=== PATIENT | female | born 1995 | race Caucasian/White ===

== ENCOUNTER → 2020-04-04 12:12 | Outpatient (CLI) | payer OTHER, MEDICAID, SELFPAY ==
--- NOTE | 2020-04-04 12:14 | DI.US.S_ITS ---
PROCEDURE: US OB >= 14 WEEKS FETUS INDICATIONS: Initial US for Dating and Viability please OUTSIDE/PRIOR DATING DATA: Last menstrual period (LMP): 12/18/2019. LMP-based estimated date of delivery (PRIMITIVO): 09/23/2020 . First dating scan (date and location): 04/04/2020 . Estimated date of delivery (PRIMITIVO) from first dating scan: 09/20/2020 . TECHNIQUE: Real-time scanning was performed of the fetus, with image documentation and biometric measurements. Endovaginal scanning: No COMPARISON: None. FINDINGS: General: A single living intrauterine gestation is present. Presentation: Transverse. Placenta: Placental position is posterior , without previa. Amniotic fluid index: 10.0 cm, normal range is 5-24 cm. heart rate: 147 beats per minute. Maternal cervical canal: 4.9 cm long. Normal lower limit is 2.5 cm. biometrics: Biparietal diameter: 15 weeks 6 days Head circumference: 15 weeks 6 days Abdominal circumference: 15 weeks 6 days Femur length: 15 weeks 5 days Estimated gestational age from initial scan: not applicable. Composite gestational age from present scan: 15 weeks 6 days Estimated weight and percentile: N/a Measurement variability for biometric dating: +/- 7 days from 14 weeks to 15 weeks 6 days gestation, +/- 10 days from 16 weeks to 21 weeks 6 days gestation, +/- 2 weeks from 22 weeks to 27 weeks 6 days gestation, +/- 3 weeks for 28 weeks gestation or later. weight reference: 4500 g or EFW >90/95% is considered macrosomia or large for gestational age. EFW <10% is small for gestational age. EFW 5% or less is considered intra-uterine growth restriction. IMPRESSION: 1. 15 week 6 day single living IUP corresponding to ultrasound PRIMITIVO of 09/20/2020. Follow-up anatomic survey recommended. Dictated by: Jared Andres Mindi Interpreted: Agusto Franco MD on 04/07/2020 at 13:35 Approved by: Agusto Franco M.D. on 04/07/2020 at 17:29
[2020-04-04 13:14] LABS: Add Manual Diff / Slide Review NO; Appearance Urine UA CLEAR; Basophils Absolute Auto 0 /uL (0-100); Basophils Percent Auto 0.5 % (0-2); Bilirubin Urine UA NEGATIVE (NEGATIVE); Color Urine UA YELLOW; Eosinophils Absolute Auto 100 /uL (0-450); Eosinophils Percent Auto 0.8 % (2-4); Glucose Urine UA NEGATIVE (Negative); Hematocrit 38.6 % (36-46); Ketones Urine UA NEGATIVE (NEGATIVE); Leukocyte Esterase Urine UA NEGATIVE (NEGATIVE); Lymphocytes Absolute Auto 2200 /uL (1100-4500); Lymphocytes Percent Auto 23.6 % (25-40); Mean Corpuscular HGB Conc 33.7 % (30-36); Mean Corpuscular Hemoglobin 29.1 PG (26-34); Mean Corpuscular Volume 86.1 fL (80-100); Monocytes Absolute Auto 500 /uL (0-900); Monocytes Percent Auto 5.6 % (3-14); Neutrophils Absolute Auto 6400 /uL (1500-7000); Neutrophils Percent Auto 69.5 % (50-75); Nitrite Urine UA NEGATIVE (Negative); Occult Blood Urine UA NEGATIVE (Negative); Platelet Count 251 X10^3/uL (150-400); Protein Urine UA NEGATIVE (Negative); Red Blood Cell Count 4.48 X10^6/uL (4.0-5.2); Red Cell Distribution Width 15.4 % (11.6-14.8); Specific Gravity Urine UA <=1.005 (1.000-1.035); Urobilinogen Urine UA 0.2 E.U./dL (0.2); White Blood Cell Count 9.3 X10^3/uL (4.5-11.0)
[2020-04-04 13:57] LABS: Free T4, Direct Thyroxine 0.64 ng/dL (0.78-2.19)
[2020-04-04 14:12] LABS: Thyroid Stimulating Hormone 5.48 uIU/mL (0.47-4.68)
[2020-04-05 04:11] LABS: RPR Screen Non Reactive (Non Reactive)
[2020-04-05 09:00] LABS: Varicella IgG Antibody 3247 index (Immune >165)
[2020-04-07 16:32] LABS: Hepatitis B Surface Antigen NEGATIVE s/c (NEGATIVE); Rubella Antibody IgG 21.1 IU/mL (>15)
[2020-04-07 16:52] LABS: HIV 1 & 2 Ab/Ag 4th Gen Combo NEGATIVE (NEGATIVE); Hep C Virus Ab w/Reflex Quant NEGATIVE s/c (NEGATIVE)
== END ==
PROVIDERS: PCP Obstetrics & Gynecology; Referring Provider Obstetrics & Gynecology; Visit Provider Obstetrics & Gynecology
DX: O99.282 Endocrine, nutritional and metabolic diseases complicating pregnancy, second trimester (principal); E03.9 Hypothyroidism, unspecified; Z3A.15 15 weeks gestation of pregnancy
CPT/HCPCS: 36415; 76801; 76811; 80055; 81003; 84439; 84443; 86787; 86803; 86850; 86900; 86901; 87086; 87389

== ENCOUNTER → 2020-04-28 12:39 | Outpatient (CLI) | payer OTHER, MEDICAID, SELFPAY ==
--- NOTE | 2020-04-28 12:40 | DI.US.S_ITS ---
PROCEDURE: US OB >= 14 WEEKS FETUS INDICATIONS: Anatomy Scan OUTSIDE/PRIOR DATING DATA: Last menstrual period (LMP): 12/18/19. LMP-based estimated date of delivery (PRIMITIVO): 09/23/20 . First dating scan (date and location): 04/04/20 . Estimated date of delivery (PRIMITIVO) from first dating scan: 09/20/20 . TECHNIQUE: Real-time scanning was performed of the fetus, with image documentation and biometric measurements. Endovaginal scanning: Not needed COMPARISON: [facility], OB >= 14 WEEKS FETUS, 04/04/2020, 12:27. FINDINGS: General: A single living intrauterine gestation is present. Presentation: Transverse fetus head to maternal right. Placenta: Placental position is posterior , without previa. Amniotic fluid index: 16.3 cm, normal range is 5-24 cm. heart rate: 147 beats per minute. Maternal cervical canal: 4.0 cm long. Normal lower limit is 2.5 cm. biometrics: Biparietal diameter: 4.4 cm, 19 weeks 2 days Head circumference: 16.2 cm, 19 weeks 0 days Abdominal circumference: 1941 cm, 19 weeks 3 days Femur length: 3.1 cm, 19 weeks 4 days Estimated gestational age from initial scan: 19 weeks 2 days Composite gestational age from present scan: 19 weeks 2 days Estimated weight and percentile: 293 g, 55th percentile Measurement variability for biometric dating: +/- 7 days from 14 weeks to 15 weeks 6 days gestation, +/- 10 days from 16 weeks to 21 weeks 6 days gestation, +/- 2 weeks from 22 weeks to 27 weeks 6 days gestation, +/- 3 weeks for 28 weeks gestation or later. weight reference: 4500 g or EFW >90/95% is considered macrosomia or large for gestational age. EFW <10% is small for gestational age. EFW 5% or less is considered intra-uterine growth restriction. Anatomic survey: Neuro: Ventricles are non-dilated at less than 10 mm. Cisterna magna is normal at 3-11 mm. Cerebellum is normal in size and morphology. Nuchal skin fold: Normal at less than 6 mm between 14-21 weeks gestational age. Face: Nose and lips, facial profile are normal. Spine: No evidence for spina bifida. Heart: 4-chambered heart is present, with normal ventricular outflow tracts. Diaphragm: Diaphragm is intact. Stomach: Left-sided stomach is present. Kidneys: No hydronephrosis. Normal is less than 5 mm in 2nd trimester, less than 7 mm in 3rd trimester. Cord: 3-vessel cord has orthotopic insertion. Bladder: Normal in size. Extremities: All 4 extremities identified. IMPRESSION: Appropriate interval growth, no anomaly seen. The delivery date is projected to be centered on 09/20/20. position currently is transverse. Dictated by: Kem Herbert M.D. on 04/28/2020 at 16:29 Approved by: Kem Herbert M.D. on 04/28/2020 at 16:32
== END ==
PROVIDERS: Referring Provider Obstetrics & Gynecology; Visit Provider Obstetrics & Gynecology
DX: Z34.82 Encounter for supervision of other normal pregnancy, second trimester (principal); Z3A.19 19 weeks gestation of pregnancy
CPT/HCPCS: 76811

== ENCOUNTER → 2020-09-02 16:47 | Outpatient (CLI) | payer OTHER, MEDICAID, SELFPAY ==
[2020-09-03 11:47] LABS: Strep Grp B PCR NEG for Grp B Strep
== END ==
PROVIDERS: Visit Provider Obstetrics & Gynecology
DX: Z34.83 Encounter for supervision of other normal pregnancy, third trimester (principal); Z3A.37 37 weeks gestation of pregnancy
CPT/HCPCS: 87653

== ENCOUNTER 2020-09-12 12:58 | Outpatient (CLI) | payer OTHER, MEDICAID, SELFPAY | END 2020-09-12 14:45 | disposition home or self-care (01) | LOC: LABOR 13:50 → OB 09-15 06:51 | PROVIDERS: Referring Provider Obstetrics & Gynecology; Visit Provider Obstetrics & Gynecology | DX: Z03.71 Encounter for suspected problem with amniotic cavity and membrane ruled out (principal); O47.1 False labor at or after 37 completed weeks of gestation; O99.323 Drug use complicating pregnancy, third trimester; Z3A.38 38 weeks gestation of pregnancy | CPT/HCPCS: 59025; 84112; G0378; G0379 ==

== ENCOUNTER 2020-09-16 21:04 | Inpatient (IN) | payer OTHER, MEDICAID, SELFPAY ==
[2020-09-16 22:30] LABS: Add Manual Diff / Slide Review NO; Basophils Absolute Auto 200 /uL (0-100); Basophils Percent Auto 1.2 % (0-2); Eosinophils Absolute Auto 100 /uL (0-450); Eosinophils Percent Auto 0.6 % (2-4); Hemoglobin 12.1 g/dL (12.0-16.0); Lymphocytes Absolute Auto 3000 /uL (1100-4500); Lymphocytes Percent Auto 17.8 % (25-40); Mean Corpuscular HGB Conc 33.5 % (30-36); Mean Corpuscular Hemoglobin 27.6 PG (26-34); Mean Corpuscular Volume 82.3 fL (80-100); Monocytes Absolute Auto 1200 /uL (0-900); Monocytes Percent Auto 7.3 % (3-14); Neutrophils Absolute Auto 12500 /uL (1500-7000); Neutrophils Percent Auto 73.1 % (50-75); Platelet Count 279 X10^3/uL (150-400); Red Blood Cell Count 4.37 X10^6/uL (4.0-5.2); Red Cell Distribution Width 14.6 % (11.6-14.8); White Blood Cell Count 17.1 X10^3/uL (4.5-11.0)
[2020-09-16 23:19] VITALS: BP 121/57
[2020-09-16 23:36] LABS: COVID19 - ADMIT (NP swab/PCR) Negative (Negative)
[2020-09-17] MEDS: DINOPROSTONE VAG (CERVIDIL) 10 MG VAG (01:53)
[2020-09-17] MEDS: LACTATED RINGERS 1,000 ML 100 ML IV ×2 (08:24→15:34)
[2020-09-17] MEDS: OXYTOCIN PREMIX 30 UNIT/500 ML PLAST..BAG IV (09:00)
--- NOTE | 2020-09-17 09:08 | PM.AN.REGBLK ---
Regional Block Pre-procedure Procedure: Continuous Lumbar Epidural for L&D Attending OB provider: Jadyn Melendez PMH/ROS narrative: term induction. No complications. Hx: No personal or family history of anesthesia problems. ASA Class: II Labs: Hct 36.0 % (36-46) 09/16/20 22:15 Plt Count 279 X10^3/uL (150-400) 09/16/20 22:15 Medications: Current Medications Generic Name Dose Route Start Last Admin Trade Name Freq PRN Reason Stop Dose Admin Calcium Carbonate 1,000 mg 09/16/20 21:19 Calcium Carbonate 500 Mg Tab PO Q2HR PRN Dyspepsia Carboprost Tromethamine 250 mcg 09/16/20 21:19 Carboprost 250 Mcg/Ml Ampul IM Q90M PRN Bleeding Diphenhydramine HCl 25 mg 09/17/20 08:29 Diphenhydramine 50 Mg/Ml Vial IV Q10M PRN Pruritis Fentanyl 50 mcg 09/16/20 21:19 Fentanyl 100 Mcg/2 Ml Inj IV Q1H PRN Pain, Moderate (4-6) Oxytocin/Lactated Ringer's 30 unit in 500 mls @ 200 mls/hr 09/16/20 21:19 Oxytocin Premix IV CONT PRN Bleeding Protocol Oxytocin/Lactated Ringer's 30 unit in 500 mls @ 3 mls/hr 09/16/20 21:30 09/17/20 09:00 Oxytocin Premix IV 3 milliunit/min TITRATE VIKRAM 3 mls/hr Administration Protocol 3 MILLIUNIT/MIN Tranexamic Acid 1,000 mg/ 100 mls @ 150 mls/hr 09/16/20 21:19 Sodium Chloride IV NOW PRN Bleeding Lactated Ringer's 1,000 mls @ 100 mls/hr 09/16/20 21:30 09/17/20 08:24 Lactated Ringers IV 100 mls/hr CONT VIKRAM Administration Lactated Ringer's 1,000 mls @ 1,000 mls/hr 09/17/20 08:29 Lactated Ringers IV 09/17/20 09:28 BOLUS ONE FENT 2MCG/ML BUPIV 0.125% EPI 200 mcg in 100 mls @ 6 mls/hr 09/17/20 08:30 Fentanyl/Bupiv/Ns 2mcg/Ml - 0.125% EPIDURAL CONT VIKRAM Methylergonovine Maleate 0.2 mg 09/16/20 21:19 Methylergonovine 0.2 Mg/Ml Vial IM NOW PRN Bleeding Methylergonovine Maleate 0.2 mg 09/16/20 21:19 Methylergonovine 0.2 Mg Tablet PO Q6HR PRN Heavy Bleeding Metoclopramide HCl 10 mg 09/16/20 21:19 Metoclopramide 10 Mg/2 Ml Inj IV NOW PRN Nausea And Vomiting Misoprostol 400 mcg 09/16/20 21:19 Misoprostol 200 Mcg Tablet SL NOW PRN Bleeding Misoprostol 800 mcg 09/16/20 21:19 Misoprostol 200 Mcg Tablet MT NOW PRN Bleeding Misoprostol 1,000 mcg 09/16/20 21: Misoprostol 200 Mcg Tablet MT NOW PRN Bleeding Naloxone HCl 0.2 mg 09/16/20 21:19 Naloxone 0.4 Mg/Ml Vial IV Q2MIN PRN Opiate Reversal Ondansetron HCl 4 mg 09/16/20 21:19 Ondansetron 4 Mg/2 Ml Inj IV Q4HR PRN Nausea And Vomiting Oxytocin 10 unit 09/16/20 21:19 Oxytocin 10 Unit/Ml Vial IM NOW PRN Bleeding Allergies: Allergies Allergy/AdvReac Type Severity Reaction Status Date / Time No Known Drug Allergies Allergy Unknown Unverified 09/09/20 15:28 Procedure Insertion date: 09/17/20 Insertion time: 09:50 Prep/Local: betadine x3 Interspace: L3-4 Patient position: sitting Needle: 18 gauge [employer] (CSE: 27g Pencan through Hustead, clear CSF, 1mL 0.25% bupiv) Loss of resistance with: saline BRENDEN at (cm): 6 Catheter placed at SKIN (cm): 12 Catheter in SPACE (cm): 6 Insertion: No CSF, No Blood, No Paresthesia with insertion, No Paresthesia with injection and No Test dose reaction Initial Medications TEST DOSE time: 09:51 TEST DOSE: 1.5% lidocaine with epinephrine 1:200k (mL): 3 BOLUS DOSE time: 10:03 BOLUS DOSE (mL): 3 BOLUS DOSE med: other (infusate) Infusion INFUSION: 0.125% bupivacaine and with fentanyl 2 mcg/mL Initial rate (mL/hr): 6 Subsequent interventions: AROM after CSE by OB. 1600: 5mL 2% chloroprocaine, complete Post-procedure Anesthesia time START: 09:40 Anesthesia time END: 16:41 Post-procedure Anesthesia Assessment: Yes CV function: HR/BP stable, Yes Resp function: RR/sat/airway adequate, Yes Post-op hydration adequate, Yes Pain control adequate, Yes Mental status appropriate and No Anesthesia complications
[2020-09-17] MEDS: FENT 2MCG/ML BUPIV 0.125% EPI 200 MCG/100 ML PLAST..BAG 6 MCG EPIDURAL ×2 (10:03→15:33)
[2020-09-17] MEDS: hydrOXYzine pamoate 25 MG CAPSULE PO (10:44)
[2020-09-17] MEDS: LACTATED RINGERS 1,000 ML 1000 ML IV (11:11)
--- NOTE | 2020-09-17 17:37 | PM.OBHP.1 ---
OB HPI Date/Time Date of admission: 09/16/20 Date Patient Seen: 09/17/20 Time Patient Seen: 06:50 History of Present Condition Chief complaint: observation of labor : 5 Para: 3 Estimated Date of Delivery: 09/23/20 Estimated Gestational Age (weeks): 39+1 Narrative: Noreen Lozada is a 25 year old female who presented for cervical ripening and now Pitocin induction of labor Indications Indication for induction OB: maternal distance (lives in [place]) History of Present care: limited care, initiated at week # (16), number of visits (5) and pounds weight gain (44) Dating criteria: LMP confirmed by 1st trimester US Ultrasounds: normal 1st trimester US and normal mid trimester US Obstetrical complications: none Medical complications: none Preadmission Labs Blood type: A (+) positive -: Antibody screen: negative, GBS status: negative, HBsAG: negative, HIV: negative and RPR/VDLR: negative -: Rubella: immune and Varicella: immune HCT: 36 HCAB: negative 1 hr GTT: 86 Prior (ies) History: 3 Evaluation Evaluation Baseline heart rate: 135 Variability: Moderate (11-25) monitor accelerations: Present Monitor Decelerations: Absent Contraction Frequency (minutes): 4 Uterine Contraction Intensity: Mild Category of Tracing: Reactive Status: Category l Cervical dilation (cm): 4 Cervical effacement (%): 80 station: -1 Laboratory results: Laboratory Tests 09/16/20 09/16/20 09/16/20 22:03 22:15 22:15 WBC 17.1 H RBC 4.37 Hgb 12.1 Hct 36.0 MCV 82.3 MCH 27.6 MCHC 33.5 RDW 14.6 Plt Count 279 Neut % (Auto) 73.1 Lymph % (Auto) 17.8 L Mcintosh % (Auto) 7.3 Eos % (Auto) 0.6 L Baso % (Auto) 1.2 Neut # (Auto) 35125 H Lymph # (Auto) 3000 Mcintosh # (Auto) 1200 H Eos # (Auto) 100 Baso # (Auto) 200 H SARS-CoV-2 (PCR) Negative Blood Type A Positive Antibody Screen Negative [facility] Medical History (Updated 06/09/20 @ 13:53 by Jadyn Melendez MD) Anxiety Asthma Bowel obstruction Depression Hair loss disorder Hypothyroidism (acquired) Migraine PTSD (post-traumatic stress disorder) (spontaneous vaginal delivery) (~12/17/14) Surgical History (Updated 04/07/20 @ 12:54 by Maryanne Rangel, KADEN) Hx laparoscopic cholecystectomy (~2012) S/P tonsillectomy Family History (Updated 04/07/20 @ 12:55 by Maryanne Rangel, KADEN) Mother Breast cancer Anxiety Depression PTSD (post-traumatic stress disorder) Bipolar 1 disorder Migraine Father Hypothyroidism (acquired) Grandmother Breast cancer Cancer Grandfather Cancer Throat cancer Grandmother Hyperlipidemia Depression Anxiety Grandfather Dementia Drug abuse CVA (cerebral vascular accident) History of coronary artery bypass surgery Pacemaker Sister Anxiety Depression Hypothyroidism (acquired) Social History marital status: unmarried,living together number of children: 3 household members: family and other pets and animals: Yes (X 1 dog) education level: high school occupational status: unemployed current occupational exposures/hazards: No special temo needs: No Smoking Status: Former smoker Tobacco: How many years used: 2 second hand exposure: No alcohol intake: former substance use type: marijuana Meds Home Medications and Allergies Home Medications Medication Instructions Recorded Confirmed Type prenat.vits,rosario,ism-btwy-nllex 1 tab PO DAILY 04/07/20 09/17/20 History hydroxyzine HCl 25 mg tablet 25 mg PO BID PRN #20 tab 04/08/20 09/17/20 Rx Allergies Allergy/AdvReac Type Severity Reaction Status Date / Time No Known Drug Allergies Allergy Unknown Unverified 09/09/20 15:28 Exam Vital Signs (past 8 hours): Generally: Patient in mild distress secondary to mild cramps. Lungs: Clear to auscultation bilaterally Cardiovascular: Regular rate and rhythm Fundal height: 39 cm Estimated weight 7-1/2 lb Extremities: Trace edema, 1+ DTRs Objective Labs Result Diagrams: 09/16/20 22:15 Labs: Laboratory Results - last 24 hr 09/16/20 09/16/20 09/16/20 22:03 22:15 22:15 WBC 17.1 H RBC 4.37 Hgb 12.1 Hct 36.0 MCV 82.3 MCH 27.6 MCHC 33.5 RDW 14.6 Plt Count 279 Neut % (Auto) 73.1 Lymph % (Auto) 17.8 L Mcintosh % (Auto) 7.3 Eos % (Auto) 0.6 L Baso % (Auto) 1.2 Neut # (Auto) 06831 H Lymph # (Auto) 3000 Mcintosh # (Auto) 1200 H Eos # (Auto) 100 Baso # (Auto) 200 H SARS-CoV-2 (PCR) Negative Blood Type A Positive Antibody Screen Negative Assessment and Plan Assessment and Plan Assessment and Plan narrative: Assessment: 25-year-old 5 para 3 at 39-,1/7 weeks gestation status post Cervidil last evening for cervical ripening Favorable cervix Plan: Pitocin per protocol 2 Epidural as necessary AROM when able Expected management to spontaneous vaginal delivery Time Spent with Patient Total time spent with greater than 50% in coordination of care (as documented) at patient's floor/unit and/or counseling patient:: less than 15 minutes
--- NOTE | 2020-09-17 17:44 | PM.OBPNLAB ---
Date/Time Date Patient Seen: 09/17/20 Time Patient Seen: 10:30 Pain Control Pain control: tolerating well Pelvic Exam Dilation (cm): 4 Effacement (%): 80 station: -1 Amniotic membrane status: Intact Contractions Pitocin rate (mU/min): 9 Contraction frequency (min): 3 Contraction duration (min): 1 Contraction pattern: Regular Contraction intensity: Strong/Firm Status status: Category l Heart Rate Baseline: 135 Monitor Accelerations: Present Monitor Decelerations: Absent Monitor Variability: Moderate Assessment and Plan Assessment: induction ongoing Comments: AROM with copious clear amniotic fluid
--- NOTE | 2020-09-17 17:46 | PM.OBPNLAB ---
Date/Time Date Patient Seen: 09/17/20 Time Patient Seen: 13:15 Pain Control Pain control: epidural Pelvic Exam Dilation (cm): 6 Effacement (%): 85 station: -1 Amniotic membrane status: Intact Contractions Monitor mode: External Pitocin rate (mU/min): 3 Contraction frequency (min): 3 Contraction pattern: Regular Contraction intensity: Strong/Firm Status status: Category l Heart Rate Baseline: 140 Monitor Accelerations: Present Monitor Decelerations: Absent Monitor Variability: Moderate Assessment and Plan Assessment: active labor and induction ongoing Plan: continuous present management
--- NOTE | 2020-09-17 17:47 | PM.OBPRVD ---
Events: Labor Induction Labor & Delivery Delivery date: 09/17/20 Cervical ripening method: per Cervidil protocol Induction method: per pitocin protocol Delivery augmentation: rupture of membranes Delivery monitor: external FHT and external uterine Route of delivery: Episiotomy description: None L&D Laceration Description: None Estimated blood loss (mL): 200 Anesthesia Type: Epidural Complications: None Baby 1: gender: Male Presentation: vertex Position: Left Occiput Anterior Placenta delivery description: Spontaneous Cord Vessel Description: 3 Vessels, Nuchal Cord and Loose score (1 min): 8 score (5 min): 8 weight: 7 lb 6 oz Narrative: Patient complete and pushed for 5 contractions. At 4:21 p.m., a live male delivered spontaneously over an intact perineum in the ERIS presentation. There was a loose nuchal cord x1 which was reduced on the perineum. The remainder of the body delivered without difficulty and was placed on mom's abdomen. After the cord stopped pulsing, the cord was double clamped and cut. Cord bloods were obtained. Pitocin was given in the IV fluids. The placenta delivered intact with a three-vessel cord at 4:35 p.m.. The fundus was massaged to firm. No lacerations. Apgars 8 at 1 minute and 8 at 5 minutes. Weight 7 lb 6 oz. . Epidural analgesia. Mom and stable to recovery. Plan for aftercare: Routine care
[2020-09-17] MEDS: IBUPROFEN 600 MG TABLET PO (18:31)
[2020-09-17] MEDS: OXYCODONE IR 5 MG TABLET PO ×2 (18:31→21:00)
[2020-09-17] MEDS: ACETAMINOPHEN 325 MG TABLET 650 MG PO (18:31)
[2020-09-17] MEDS: LANOLIN OINT 7 GM 1 APPLIC TOP (21:00)
[2020-09-18] MEDS: OXYCODONE IR 10 MG TABLET PO ×4 (01:24→13:11)
[2020-09-18] MEDS: IBUPROFEN 600 MG TABLET PO ×2 (01:24→08:34)
[2020-09-18] MEDS: ACETAMINOPHEN 325 MG TABLET 650 MG PO ×2 (01:25→08:35)
[2020-09-18] MEDS: DOCUSATE 100 MG CAPSULE PO (08:34)
[2020-09-18] MEDS: PRENATAL VIT,CALC/IRON/FOLIC 1 TABLET 1 TAB PO (08:34)
--- NOTE | 2020-09-18 08:44 | PM.OBDS.1 ---
Discharge Providers Provider Date of admission: 09/16/20 21:04 Discharge Date: 09/18/20 Primary care physician: Doctor Yvonne MD Consults: 09/18/20 16:49 Consult to Home Health Care Respiratory Therapist Routine Comment: Discharge provider: Jadyn Melendez MD Summary Hospital Course Date Patient Seen: 09/18/20 Time Patient Seen: 08:45 Diagnoses: 39 weeks gestation Cervical ripening with Cervidil Pitocin induction of labor Artificial rupture of membranes Epidural analgesia Spontaneous vaginal delivery Hospital Course: Patient is a 25-year-old 5 para 4 who presented for Cervidil cervical ripening on September 16, 2020. She received 1 dose of Cervidil. On September 17, 2020 she was started on Pitocin. She received an epidural for pain management. Artificial rupture membranes was performed. She progressed to complete dilation and had a spontaneous vaginal delivery without complication. Her course was unremarkable. is going well. Bleeding is starting to taper. Her pain is controlled with ibuprofen and oxycodone. She is discharged home Peripartum Data Infant Delivery Method: Natural Vaginal Laceration Description: None Episiotomy description: None Procedures: Cervidil cervical ripening Pitocin induction of labor Artificial rupture of membranes Epidural analgesia Spontaneous vaginal delivery complications: none 1: Gender: Male Disposition of : home Status at Discharge Cognitive/behavioral status at discharge: oriented Functional status at discharge: independent ambulation Overall status at discharge: patient is progressing back to baseline Time Spent with Patient Time attestation: Total time spent providing and/or coordinating discharge services: Time spent: Less than 30 minutes Objective Labs Result Diagrams: 09/16/20 22:15 Discharge Plan Discharge Plan Patient Disposition: Home Provider Discharge Comment: Call with fever, chills, or bleeding vaginally more than a pad in an hour Ibuprofen 600 mg every 6 hours as needed for cramping Discharge orders & Medications Prescriptions: New oxycodone-acetaminophen [Percocet] 5-325 mg tablet 1 tab PO Q4H PRN (Reason: pain) Qty: 20 RF: 0 ibuprofen 600 mg tablet 600 mg PO Q6H PRN (Reason: cramping) Qty: 30 RF: 0 Continued hydroxyzine HCl 25 mg tablet 25 mg PO BID PRN (Reason: anxiety) Qty: 20 RF: 3 prenat.vits,rosario,[id number] Tablet 1 tab PO DAILY RF: 0 Follow up/Referrals: Jadyn Melendez MD [Physician] - 6 Weeks Diet/Activity/Treatments Diet: Regular Activity: No intercourse until after 6 week visit Skin/Wound/Dressing Care Report to your healthcare provider any signs of infection, such as:: chills, fever, increased pain and unusual drainage Visit Report/Discharge Packet Instructions: DI for Labor and Delivery, Vaginal Discharge Data Primary Care Provider: Miscellaneous,Doctor
== END 2020-09-18 13:30 | disposition home or self-care (01) | DRG 560 ==
PROVIDERS: Admitting Provider Obstetrics & Gynecology; Referring Provider Obstetrics & Gynecology; Visit Provider Obstetrics & Gynecology
DX: O69.81X0 Labor and delivery complicated by cord around neck, without compression, not applicable or unspecified (principal); Z3A.39 39 weeks gestation of pregnancy; Z37.0 Single live birth; Z20.822 Contact with and (suspected) exposure to COVID-19
CPT/HCPCS: 01967; 36415; 59050; 59409; 85025; 86850; 86900; 86901; 87635; C9803; G0379; J2590

== ENCOUNTER → 2021-10-08 14:12 | Outpatient (CLI) | payer OTHER, MEDICAID, SELFPAY ==
[2021-10-08 16:54] LABS: Free T3, Triiodothyronine Free 3.49 pg/mL (2.77-5.27); Free T4, Direct Thyroxine 0.65 ng/dL (0.78-2.19)
[2021-10-08 17:07] LABS: Thyroid Stimulating Hormone 11.2 uIU/mL (0.47-4.68)
== END ==
PROVIDERS: PCP Family Medicine; Referring Provider Family Medicine; Visit Provider Family Medicine
DX: E03.9 Hypothyroidism, unspecified (principal)
CPT/HCPCS: 36415; 84439; 84443; 84481

== ENCOUNTER → 2022-03-02 15:38 | Outpatient (CLI) | payer OTHER, MEDICAID, SELFPAY ==
[2022-03-02 16:34] LABS: Pregnancy Test Urine Negative (Negative)
[2022-03-02 17:55] LABS: Urine N gonorrhoeae NOT DETECTED
[2022-03-02 18:00] LABS: Urine Chlamydia NOT DETECTED
== END ==
PROVIDERS: PCP Family Medicine; Visit Provider Student in an Organized Health Care Education/Training Program
DX: Z11.3 Encounter for screening for infections with a predominantly sexual mode of transmission (principal); N89.8 Other specified noninflammatory disorders of vagina
CPT/HCPCS: 81025; 87210; 87491; 87591

== ENCOUNTER → 2022-08-10 15:22 | Outpatient (CLI) | payer OTHER, MEDICAID, SELFPAY ==
[2022-08-10 18:23] LABS: Free T4, Direct Thyroxine 0.63 ng/dL (0.78-2.19)
== END ==
PROVIDERS: PCP Family Medicine; Referring Provider Family Medicine; Visit Provider Family Medicine
DX: E03.9 Hypothyroidism, unspecified (principal)
CPT/HCPCS: 36415; 84439; 84443

== ENCOUNTER → 2022-12-03 11:53 | Outpatient (CLI) | payer OTHER, MEDICAID, SELFPAY ==
[2022-12-06 10:07] LABS: Candida species Negative (Negative); Gardnerella vaginalis Positive (Negative); Trichomoas vaginalis Negative (Negative)
== END ==
PROVIDERS: PCP Family Medicine; Visit Provider Obstetrics & Gynecology
DX: N89.8 Other specified noninflammatory disorders of vagina (principal)
CPT/HCPCS: 87480; 87510; 87660

== ENCOUNTER → 2024-11-08 17:08 | Outpatient (CLI) | payer OTHER, SELFPAY ==
[2024-11-08 18:57] LABS: Free T3, Triiodothyronine Free 4.11 pg/mL (2.77-5.27); Free T4, Direct Thyroxine 0.82 ng/dL (0.78-2.19)
[2024-11-08 19:11] LABS: TSH w/ Reflex to FT4 15.50 uIU/mL (0.47-4.68); Thyroid Stimulating Hormone 15.5 uIU/mL (0.47-4.68)
== END ==
LOC: LAB 17:09
PROVIDERS: PCP Family Medicine; Referring Provider Family Medicine; Visit Provider Family Medicine
DX: E03.9 Hypothyroidism, unspecified (principal)
CPT/HCPCS: 36415; 84439; 84443; 84481